=== PATIENT | female | born 1995 | race Caucasian/White ===

== ENCOUNTER 2022-12-09 17:22 | Emergency (ER) | payer OTHER ==
[~2022-12-09] VITALS: Ht 154.9 cm; Wt 224.0 kg
[~2022-12-09 17:22] MED LIST: ABILIFY10 MG OR; ABILIFY10 MG PO; ABILIFY5 MG OR; ADDERALL10 MG PO; ADDERALL30 MG PO; ADVAIR HF1 IN; ALBUTEROL S2.5 MG/.5 IN; ALBUTEROL0.083 % IN; ALBUTEROL0.5 % IN; AMOXICILLIN500 MG OR; AMOXICILLIN500 MG PO; AMOXIL500 MG OR; BACTRIM DS1 TAB OR; BACTRIM DS1 TAB PO; BENZTROPINE0.5 MG PO; BENZTROPINE1 MG PO; BUSPAR15 M1 PO; BUSPIRONE5 MG PO; CELEXA20 M1 PO; CEPHALEXIN250 MG/51 OR; CEPHALEXIN500 MG PO; CIPROFLOXACIN250 MG PO; CIPROFLOXACN500 MG PO; CLONIDINE0.2 MG OR; DDAVP0.1 MG OR; DDAVP0.2 MG OR; DDAVP0.2 MG PO; DEPAKOTE500 MG PO; DESMOPRESSIN0.2 MG OR; DULCOLAX5 MG PO; FLOVENT HFA44 MCG IN; HALOPERIDOL10 MG PO; HALOPERIDOL5 MG PO; IBUPROFEN600 MG PO; INTUNIV1 MG PO; INTUNIV2 MG OR; INTUNIV3 MG OR; INVEGA6 MG OR; INVEGA6 MG PO; INVEGA9 MG OR; KEFLEX250 MG OR; KEFLEX500 MG PO; LAMICTAL ODT50 MG PO; LAMICTAL100 M1 PO; LAMICTAL5 MG OR; LAMOTRIGINE25 M1 PO; LATUDA40 MG PO; LEVOTHYROXIN50 MCG PO; LITHIUM CARB300 MG PO; LITHIUM CARB450 MG PO; MACROBID100 MG PO; MEDROXYPROG150 MG/ML IM; MIRALAX3350 N1 PO; MIRALAX3350 NF OR; MOTRIN800 MG PO; NALTREXONE50 MG PO; NAPROSYN500 MG PO; NAPROXEN500 MG PO; OLANZAPINE10 MG PO; OMEPRAZOLE20 MG PO; OMNI-PAC300 MG PO; ORAPRED15 MG/5 ML OR; PRELONE15 MG/5 M1 OR; PREVACID30 M2 PO; PROAIR HFA IN; PROTONIX40 M2 PO; PROVENTIL INH17 GM IN; PROVENTIL0.083 % IN; PROZAC20 MG PO; PYRIDIUM200 MG PO; REMERON15 MG PO; RISPERDAL1 M1 OR; RISPERIDONE0.5 MG OR; SENNA-TABS8.6 MG PO; SEROQUEL100 MG PO; SERTRALINE HCL50 MG PO; SILVER SULFA1 % EX; SINGULAIR 10 MG10 MG PO; SINGULAIR10 MG OR; SINGULAIR5 MG OR; STRATTERA100 MG PO; STRATTERA80 MG PO; TORADOL OR; TORADOL PO; TRAZODONE50 MG PO; TRILEPTAL300 M1 PO; TRIMOX500 MG PO; ULTRAM50 M1 PO; VISTARIL 50MG C50 M1 PO; VYTONE EX; VYVANSE30 MG OR; VYVANSE40 MG OR; ZITHROMAX250 MG OR; ZOFRAN ODT4 MG PO; ZOFRAN4 MG/TAB PO; ZOLOFT50 MG PO; [UNRECOGNIZED DRUG - OTHER]; [UNRECOGNIZED DRUG - OTHER] PO; [UNRECOGNIZED DRUG - OTHER] PO; [UNRECOGNIZED DRUG - REMARK]
[2022-12-09 18:33] VITALS: BP 122/64
== END 2022-12-09 18:38 | disposition home or self-care (01) ==
LOC: ED 17:22
DX: S51.812A Laceration without foreign body of left forearm, initial encounter (principal); F31.9 Bipolar disorder, unspecified; X78.0XXA Intentional self-harm by sharp glass, initial encounter; Z91.52 Personal history of nonsuicidal self-harm

== ENCOUNTER 2022-12-12 15:47 | Emergency (ER) | payer OTHER ==
[~2022-12-12] VITALS: Ht 154.9 cm; Wt 90.7 kg
[2022-12-12 15:52] VITALS: BP 123/92
[2022-12-12 16:01] VITALS: BP 141/86
[2022-12-12 16:31] VITALS: BP 112/78
[2022-12-12 16:55] LABS: HEMATOCRIT 42.3 % (37.0-47.0); HEMOGLOBIN 13.6 g/dl (12.0-16.0); IMMATURE GRANULOCYTES 0.6 % (0.0-5.0); LYMPH% 25.1 % (15-41); MEAN CELL VOLUME 90.2 fL CALC (80.0-100.0); MEAN CORPUSCULAR HGB CONC 32.2 g/dL CAL (32.0-36.0); MONO% 5.3 % (2-13); NEUT# 6.17 thou/uL (2.00-7.15); RED BLOOD COUNT 4.69 mill/uL (4.20-5.60); RED CELL DISTRI WIDTH 12.9 % (11.5-15.5)
[2022-12-12 17:10] LABS: ALBUMIN 4.6 g/dL (3.2-5.0); ALKALINE PHOSPHATASE 92 u/l (38-126); ANION GAP 14 (6-22 (CALC)); BILIRUBIN, TOTAL 0.6 mg/dL (0.02-1.3); BUN 16 mg/dL (7-17); BUN/CREATININE RATIO 16 (12-20 (CALC)); CHLORIDE 104 mmol/l (95-108); ETHYL ALCOHOL 0 mg/dl (0-30); GFR FOR AFR.AMER. > 60 ML/MIN (>=60 (CALC)); GFR OTHER RACES > 60 ML/MIN (>=60 (CALC)); POTASSIUM 4.1 mmol/l (3.5-5.1); SGOT/AST 38 u/l (14-36); SODIUM 139 mmol/l (137-146); TOTAL PROTEIN 7.1 g/dL (6.3-8.2)
[2022-12-12 17:16] LABS: CARBON DIOXIDE 25 mmol/l (22-30)
[2022-12-12 17:37] LABS: URINE BILIRUBIN - DIPSTICK NEGATIVE (NEGATIVE); URINE BLOOD DIPSTICK NEGATIVE (NEGATIVE); URINE COLOR YELLOW; URINE GLUCOSE - DIPSTICK NEGATIVE (NEGATIVE); URINE KETONE TRACE mg/dL (NEGATIVE); URINE LEUK ESTERASE NEGATIVE (NEGATIVE); URINE PROTEIN - DIPSTICK NEGATIVE (NEG-TRACE); URINE UROBILINOGEN - DIPSTICK 0.2 E.U./dL (0.2)
[2022-12-12 17:39] LABS: URINE NITRITE - DIPSTICK NEGATIVE (Negative)
[2022-12-12 18:19] VITALS: BP 90/60
[2022-12-12] MEDS ORDERED: ZIPRASIDONE HCL40 M1 PO (18:29)
[2022-12-12] MEDS ORDERED: REMERON15 MG PO (18:29)
[2022-12-12] MEDS ORDERED: ESCITALOPRAM OX10 MG PO (18:34)
[2022-12-12 18:38] VITALS: BP 105/41
[2022-12-12 18:46] VITALS: BP 97/32
[2022-12-13 02:37] VITALS: BP 113/74
== END 2022-12-13 07:20 ==
LOC: ED 15:47
PROVIDERS: Nurse Practitioner
DX: S51.811A Laceration without foreign body of right forearm, initial encounter (principal); S10.91XA Abrasion of unspecified part of neck, initial encounter; F31.9 Bipolar disorder, unspecified; X78.0XXA Intentional self-harm by sharp glass, initial encounter

== ENCOUNTER 2022-12-20 19:19 | Emergency (ER) | payer OTHER ==
[~2022-12-20] VITALS: Ht 154.9 cm; Wt 102.7 kg
[~2022-12-20 19:19] MED LIST changes: +ESCITALOPRAM OX10 MG PO; +ZIPRASIDONE HCL40 M1 PO
[2022-12-20 20:01] LABS: BASO% 0.1 % (0-3); HEMATOCRIT 41.5 % (37.0-47.0); HEMOGLOBIN 13.7 g/dl (12.0-16.0); IMMATURE GRANULOCYTES 0.1 % (0.0-5.0); LYMPH% 22.5 % (15-41); MEAN CELL VOLUME 87.6 fL CALC (80.0-100.0); MEAN CORPUSCULAR HGB 28.9 pG CALC (26.0-32.0); MONO% 4.6 % (2-13); NEUT# 6.6 thou/uL (2.00-7.15); NEUT% 72.7 % (42-76); RED BLOOD COUNT 4.74 mill/uL (4.20-5.60); RED CELL DISTRI WIDTH 12.3 % (11.5-15.5)
[2022-12-20 20:17] LABS: ALBUMIN 4.9 g/dL (3.2-5.0); ALKALINE PHOSPHATASE 79 u/l (38-126); ANION GAP 13 (6-22 (CALC)); BILIRUBIN, TOTAL 0.5 mg/dL (0.02-1.3); BUN 12 mg/dL (7-17); BUN/CREATININE RATIO 16 (12-20 (CALC)); CARBON DIOXIDE 29 mmol/l (22-30); CHLORIDE 103 mmol/l (95-108); CPK 58 u/l (30-135); CREATININE 0.7 mg/dL (0.5-1.0); ETHYL ALCOHOL 0 mg/dl (0-30); GFR FOR AFR.AMER. > 60 ML/MIN (>=60 (CALC)); GFR OTHER RACES > 60 ML/MIN (>=60 (CALC)); MAGNESIUM 1.9 mg/dL (1.6-2.3); SGOT/AST 29 u/l (14-36); SODIUM 141 mmol/l (137-146); TOTAL PROTEIN 7.1 g/dL (6.3-8.2)
[2022-12-20 20:44] LABS: URINE BILIRUBIN - DIPSTICK NEGATIVE (NEGATIVE); URINE BLOOD DIPSTICK MODERATE (NEGATIVE); URINE COLOR YELLOW; URINE GLUCOSE - DIPSTICK NEGATIVE (NEGATIVE); URINE KETONE NEGATIVE (NEGATIVE); URINE LEUK ESTERASE NEGATIVE (NEGATIVE); URINE PROTEIN - DIPSTICK NEGATIVE (NEG-TRACE); URINE SPECIFIC GRAVITY 1.025; URINE UROBILINOGEN - DIPSTICK 0.2 E.U./dL (0.2)
[2022-12-20 20:45] LABS: URINE NITRITE - DIPSTICK NEGATIVE (Negative)
[2022-12-20 20:47] LABS: TSH, 3RD GENERATION 1.21 uIU/mL (0.47 - 4.68)
[2022-12-20 20:52] LABS: URINE SQUAMOUS EPITHELIAL CELL FEW EPI/hpf (0-FEW); URINE WBC 0-2 WBC/hpf (0-5)
[2022-12-20] MEDS ORDERED: VISTARIL25 MG PO (21:53)
[2022-12-20 21:59] VITALS: BP 125/77
[2022-12-25] MEDS ORDERED: MECLIZINE HYDRO25 M1 PO (16:53)
== END 2022-12-20 22:11 | disposition home or self-care (01) ==
LOC: ED 19:19
PROVIDERS: Family Medicine
DX: F41.9 Anxiety disorder, unspecified (principal); T42.4X5A Adverse effect of benzodiazepines, initial encounter; F31.9 Bipolar disorder, unspecified; S51.812D Laceration without foreign body of left forearm, subsequent encounter; S51.811D Laceration without foreign body of right forearm, subsequent encounter; X58.XXXD Exposure to other specified factors, subsequent encounter

== ENCOUNTER 2022-12-25 18:23 | Emergency (ER) | payer OTHER ==
[~2022-12-25] VITALS: Ht 154.9 cm; Wt 110.0 kg
[~2022-12-25 18:23] MED LIST changes: +MECLIZINE HYDRO25 M1 PO; +VISTARIL25 MG PO
[2022-12-25 19:20] LABS: BASO% 0.1 % (0-3); HEMATOCRIT 41.5 % (37.0-47.0); HEMOGLOBIN 13.7 g/dl (12.0-16.0); IMMATURE GRANULOCYTES 0.1 % (0.0-5.0); LYMPH% 25.5 % (15-41); MEAN CELL VOLUME 88.9 fL CALC (80.0-100.0); MEAN CORPUSCULAR HGB 29.3 pG CALC (26.0-32.0); MONO% 6.3 % (2-13); NEUT# 6.02 thou/uL (2.00-7.15); RED BLOOD COUNT 4.67 mill/uL (4.20-5.60); RED CELL DISTRI WIDTH 12.6 % (11.5-15.5)
[2022-12-25 19:33] LABS: ALBUMIN 4.6 g/dL (3.2-5.0); ALKALINE PHOSPHATASE 74 u/l (38-126); ANION GAP 11 (6-22 (CALC)); BILIRUBIN, TOTAL 0.6 mg/dL (0.02-1.3); BUN 10 mg/dL (7-17); BUN/CREATININE RATIO 15 (12-20 (CALC)); CARBON DIOXIDE 25 mmol/l (22-30); CHLORIDE 108 mmol/l (95-108); CREATININE 0.7 mg/dL (0.5-1.0); GFR FOR AFR.AMER. > 60 ML/MIN (>=60 (CALC)); GFR OTHER RACES > 60 ML/MIN (>=60 (CALC)); POTASSIUM 3.7 mmol/l (3.5-5.1); SGOT/AST 34 u/l (14-36); SODIUM 141 mmol/l (137-146); TOTAL PROTEIN 6.9 g/dL (6.3-8.2)
[2022-12-26 16:28] VITALS: BP 96/58
== END 2022-12-26 16:15 ==
LOC: ED 18:23
PROVIDERS: Family Medicine
DX: S10.91XA Abrasion of unspecified part of neck, initial encounter (principal); S30.811A Abrasion of abdominal wall, initial encounter; S50.812A Abrasion of left forearm, initial encounter; S50.811A Abrasion of right forearm, initial encounter; F32.9 Major depressive disorder, single episode, unspecified; F60.3 Borderline personality disorder; X78.0XXA Intentional self-harm by sharp glass, initial encounter; Y92.009 Unspecified place in unspecified non-institutional (private) residence as the place of occurrence of the external cause; Z91.410 Personal history of adult physical and sexual abuse; Z91.51 Personal history of suicidal behavior; R42 Dizziness and giddiness; F31.9 Bipolar disorder, unspecified; F60.9 Personality disorder, unspecified

== ENCOUNTER 2023-01-07 14:22 | Emergency (ER) | payer OTHER ==
[~2023-01-07] VITALS: Ht 154.9 cm; Wt 101.5 kg
[2023-01-07] MEDS ORDERED: ATIVAN0.5 MG PO (14:43)
[2023-01-07 15:31] LABS: HEMATOCRIT 40.2 % (37.0-47.0); HEMOGLOBIN 13.3 g/dl (12.0-16.0); IMMATURE GRANULOCYTES 0.1 % (0.0-5.0); LYMPH% 25.2 % (15-41); MEAN CELL VOLUME 89.5 fL CALC (80.0-100.0); MEAN CORPUSCULAR HGB 29.6 pG CALC (26.0-32.0); MEAN CORPUSCULAR HGB CONC 33.1 g/dL CAL (32.0-36.0); MONO% 6.5 % (2-13); NEUT# 5.66 thou/uL (2.00-7.15); NEUT% 68.2 % (42-76); RED BLOOD COUNT 4.49 mill/uL (4.20-5.60); RED CELL DISTRI WIDTH 12.7 % (11.5-15.5)
[2023-01-07 15:53] LABS: ALBUMIN 4.6 g/dL (3.2-5.0); ALKALINE PHOSPHATASE 85 u/l (38-126); ANION GAP 12 (6-22 (CALC)); BILIRUBIN, TOTAL 0.7 mg/dL (0.02-1.3); BUN 14 mg/dL (7-17); BUN/CREATININE RATIO 19 (12-20 (CALC)); CARBON DIOXIDE 25 mmol/l (22-30); CHLORIDE 107 mmol/l (95-108); CREATININE 0.7 mg/dL (0.5-1.0); ETHYL ALCOHOL 0 mg/dl (0-30); GFR FOR AFR.AMER. > 60 ML/MIN (>=60 (CALC)); GFR OTHER RACES > 60 ML/MIN (>=60 (CALC)); POTASSIUM 3.8 mmol/l (3.5-5.1); SGOT/AST 51 u/l (14-36); SODIUM 140 mmol/l (137-146)
[2023-01-07 18:16] LABS: URINE BILIRUBIN - DIPSTICK NEGATIVE (NEGATIVE); URINE BLOOD DIPSTICK NEGATIVE (NEGATIVE); URINE COLOR YELLOW; URINE GLUCOSE - DIPSTICK NEGATIVE (NEGATIVE); URINE KETONE 15 mg/dL (NEGATIVE); URINE LEUK ESTERASE NEGATIVE (NEGATIVE); URINE PROTEIN - DIPSTICK NEGATIVE (NEG-TRACE); URINE SPECIFIC GRAVITY 1.025; URINE UROBILINOGEN - DIPSTICK 0.2 E.U./dL (0.2)
[2023-01-07 18:18] LABS: URINE NITRITE - DIPSTICK NEGATIVE (Negative)
[2023-01-08] MEDS ORDERED: ABILIFY10 M1 PO (12:50)
[2023-01-08] MEDS ORDERED: ATIVAN0.5 MG PO (12:51)
[2023-01-08 13:00] VITALS: BP 125/81
== END 2023-01-08 13:03 | disposition home or self-care (01) ==
LOC: ED 14:22
PROVIDERS: Family Medicine
DX: R45.851 Suicidal ideations (principal); F32.9 Major depressive disorder, single episode, unspecified; R44.0 Auditory hallucinations; R44.1 Visual hallucinations; F41.9 Anxiety disorder, unspecified; F60.3 Borderline personality disorder; Z91.51 Personal history of suicidal behavior; Z62.810 Personal history of physical and sexual abuse in childhood

== ENCOUNTER 2024-08-01 17:40 | Emergency (ER) | payer OTHER ==
[~2024-08-01] VITALS: Ht 154.9 cm; Wt 90.0 kg
[~2024-08-01 17:40] MED LIST changes: +ABILIFY10 M1 PO; +ATIVAN0.5 MG PO; +BIRTH CONTROL IMPLAN
[2024-08-01 18:31] VITALS: BP 103/70
[2024-08-01 18:46] VITALS: BP 73/48
[2024-08-01 19:01] VITALS: BP 66/44
[2024-08-01 19:16] VITALS: BP 144/91
[2024-08-01 19:32] VITALS: BP 93/61
[2024-08-01 20:04] VITALS: BP 93/61
== END 2024-08-01 20:05 | disposition home or self-care (01) ==
LOC: ED 17:40
DX: G57.62 Lesion of plantar nerve, left lower limb (principal)

== ENCOUNTER 2024-08-08 20:03 | Emergency (ER) | payer OTHER ==
[~2024-08-08] VITALS: Ht 154.9 cm; Wt 98.0 kg
[2024-08-08 21:07] VITALS: BP 130/88
[2024-08-08] MEDS ORDERED: Diph, Acellular Pertussis, Tet 0.5 ML/VIAL (Tdap) SDV IM ONE (21:10)
[2024-08-08 21:16] VITALS: BP 116/86
== END 2024-08-08 21:22 | disposition home or self-care (01) ==
LOC: ED 20:03
DX: S61.412A Laceration without foreign body of left hand, initial encounter (principal); W26.0XXA Contact with knife, initial encounter
CPT/HCPCS: 90715

== ENCOUNTER 2024-08-12 17:28 | Emergency (ER) | payer OTHER ==
[~2024-08-12] VITALS: Ht 154.9 cm; Wt 93.2 kg
[2024-08-12 17:37] VITALS: BP 111/65
[2024-08-12 17:45] VITALS: BP 111/73
[2024-08-12 18:02] VITALS: BP 139/114
[2024-08-12 18:18] VITALS: BP 210/191
[2024-08-12] MEDS ORDERED: MEDDOSEPAK PO (18:41)
[2024-08-12] MEDS ORDERED: ZITHROMAX Z-PA250 MG PO (18:41)
[2024-08-12] MEDS ORDERED: AZITHROMYCIN 250 MG/TAB PO ONE (18:50)
[2024-08-12] MEDS ORDERED: predniSONE 20 MG/TAB PO ONE (18:50)
[2024-08-12 19:10] VITALS: BP 110/64
== END 2024-08-12 19:12 | disposition home or self-care (01) ==
LOC: ED 17:28
DX: J06.9 Acute upper respiratory infection, unspecified (principal); F41.9 Anxiety disorder, unspecified; F32.A Depression, unspecified

== ENCOUNTER 2024-09-12 15:20 | Emergency (ER) | payer OTHER ==
[~2024-09-12] VITALS: Ht 154.9 cm; Wt 97.0 kg
[~2024-09-12 15:20] MED LIST changes: +MEDDOSEPAK PO; +ZITHROMAX Z-PA250 MG PO
[2024-09-12 15:40] VITALS: BP 124/106
[2024-09-12 15:47] VITALS: BP 115/61
[2024-09-12 16:00] VITALS: BP 102/71
[2024-09-12 16:15] VITALS: BP 92/62
[2024-09-12] MEDS ORDERED: IBUPROFEN 200 MG/TAB PO ONE (16:15)
[2024-09-12] MEDS ORDERED: ACETAMINOPHEN 500 MG TAB PO ONE (16:15)
[2024-09-12 16:16] VITALS: BP 92/62
== END 2024-09-12 16:25 | disposition home or self-care (01) ==
LOC: ED 15:20
DX: M79.671 Pain in right foot (principal)

== ENCOUNTER 2024-09-21 14:24 | Emergency (ER) | payer OTHER ==
[~2024-09-21] VITALS: Ht 154.9 cm; Wt 86.0 kg
[2024-09-21 15:04] VITALS: BP 118/68
[2024-09-21 15:09] VITALS: BP 118/68
[2024-09-21] MEDS ORDERED: NEURONTIN100 MG PO (15:12)
[2024-09-21 15:15] VITALS: BP 108/73
== END 2024-09-21 15:21 | disposition home or self-care (01) ==
LOC: ED 14:24
DX: M79.672 Pain in left foot (principal); Z91.190 Patient's noncompliance with other medical treatment and regimen due to financial hardship

== ENCOUNTER 2024-10-26 12:13 | Emergency (ER) | payer OTHER ==
[~2024-10-26] VITALS: Ht 154.9 cm; Wt 92.0 kg
[~2024-10-26 12:13] MED LIST changes: +NEURONTIN100 MG PO
[2024-10-26 12:19] VITALS: BP 74/38
[2024-10-26 12:20] VITALS: BP 116/79
[2024-10-26] MEDS ORDERED: SODIUM CHLORIDE 0.9% 1,000 ML IV ONE (12:25)
[2024-10-26 12:39] LABS: HEMATOCRIT 40.8 % (37.0-47.0); HEMOGLOBIN 13.4 g/dl (12.0-16.0); IMMATURE GRANULOCYTES 0.2 % (0.0-5.0); LYMPH% 33.8 % (15-41); MEAN CELL VOLUME 92.7 fL CALC (80.0-100.0); MEAN CORPUSCULAR HGB 30.5 pG CALC (26.0-32.0); MEAN CORPUSCULAR HGB CONC 32.8 g/dL CAL (32.0-36.0); MONO% 5.7 % (2-13); NEUT# 3.36 thou/uL (2.00-7.15); NEUT% 60.3 % (42-76); RED BLOOD COUNT 4.4 mill/uL (4.20-5.60)
[2024-10-26 12:39] LABS: URINE BILIRUBIN - DIPSTICK Negative (NEGATIVE); URINE BLOOD DIPSTICK Negative (NEGATIVE); URINE GLUCOSE - DIPSTICK Negative (NEGATIVE); URINE KETONE Negative (NEGATIVE); URINE NITRITE - DIPSTICK Negative (Negative); URINE PROTEIN - DIPSTICK Negative (NEG-TRACE); URINE UROBILINOGEN - DIPSTICK 0.2 E.U./dL (0.2)
[2024-10-26 12:46] VITALS: BP 104/88
[2024-10-26 12:50] LABS: ALBUMIN 4.3 g/dL (3.2-5.0); ALKALINE PHOSPHATASE 57 u/l (38-126); ANION GAP 11 (6-22 (CALC)); BILIRUBIN, TOTAL 0.7 mg/dL (0.02-1.3); BUN 8 mg/dL (7-17); BUN/CREATININE RATIO 11 (12-20 (CALC)); CARBON DIOXIDE 24 mmol/l (22-30); CHLORIDE 109 mmol/l (95-108); CREATININE 0.8 mg/dL (0.5-1.0); ESTIMATED GFR 104 ML/MIN (>=90 (CALC)); POTASSIUM 3.7 mmol/l (3.5-5.1); SGOT/AST 26 u/l (14-36); SODIUM 140 mmol/l (137-146); TOTAL PROTEIN 6.5 g/dL (6.3-8.2)
[2024-10-26 12:59] LABS: URINE COLOR Yellow; URINE LEUK ESTERASE Small (NEGATIVE)
[2024-10-26 13:02] VITALS: BP 128/98
[2024-10-26 13:06] LABS: URINE RBC 0-2 RBC/hpf (0-5); URINE SQUAMOUS EPITHELIAL CELL MODERATE EPI/hpf (0-FEW)
[2024-10-26 13:08] LABS: URINE BACTERIA FEW hpf
[2024-10-26 15:01] VITALS: BP 108/70
== END 2024-10-26 15:17 | disposition home or self-care (01) ==
LOC: ED 12:13
PROVIDERS: Nurse Practitioner
DX: R55 Syncope and collapse (principal); M25.562 Pain in left knee; M25.572 Pain in left ankle and joints of left foot; F31.9 Bipolar disorder, unspecified; F41.9 Anxiety disorder, unspecified